=== PATIENT | female | born 1930 | race African-American/Black ===

== ENCOUNTER 2016-08-15 07:30 | Emergency (ER) | payer MEDICARE, OTHER ==
[~2016-08-15] VITALS: Ht 154.9 cm; Wt 87.0 kg
[~2016-08-15 07:30] MED LIST: ALLO300 PO; ASPI-119 PO; CODOIL PO; CORE25TA PO; ECOT81TA2 PO; FERR324T4 PO; FURO20 PO; KCL10C PO; LOSA25TA31 PO; MAGN500T4 PO; MEVA40TA PO; OMEP20CA5 PO; SUPETAB30 PO; VITA-13 PO; VITATAB11 PO
[2016-08-15 07:33] VITALS: BP 211/98; PULSE 89; RESP 15; TEMP 99; O2SAT 97
[2016-08-15 07:54] VITALS: BP 165/92; PULSE 84; RESP 25; O2SAT 95
[2016-08-15] MEDS ORDERED: ATOR20TA15 PO (08:01)
[2016-08-15] MEDS ORDERED: OMEP20CA2 PO (08:01)
[2016-08-15] MEDS ORDERED: VITACAP7 PO (08:01)
[2016-08-15] MEDS ORDERED: ESSE250T PO (08:01)
[2016-08-15] MEDS ORDERED: ALLO100T PO (08:01)
[2016-08-15] MEDS ORDERED: CARV25TA PO (08:01)
[2016-08-15] MEDS ORDERED: ASPI81CH CHEW (08:01)
[2016-08-15] MEDS ORDERED: LOSA50TA PO (08:01)
[2016-08-15] MEDS ORDERED: FERR1TAB58 PO (08:01)
[2016-08-15] MEDS ORDERED: VITA100036 PO (08:01)
--- NOTE | 2016-08-15 08:02 | PD ---
HPI Chief Complaint: Respiratory Symptoms Time Seen by Provider: 07:52 Travel History International Travel<30 days: No Contact w/Intl Traveler<30days: No Traveled to known affect area: No History of Present Illness HPI The patient was seen and examined in the presence of the nurse. This patient complains of cough and wheezing. She woke up at 4 AM with the symptoms. Duration is 4 hours. Severity is mild to moderate. No alleviating factors. She did not have any chest pain or presyncopal symptoms. No documented fever. She has mild chronic edema unchanged from usual PFSH Past Medical History Arthritis: Yes Cancer: No Cardiovascular Problems: Yes High Cholesterol: Yes Endocrine: No Gastrointestinal Disorders: Yes Gout: Yes Genitourinary: No Hypertension: Yes Implanted Vascular Access Dvce: Yes Musculoskeletal: Yes Neurologic: No Psychiatric: No Reproductive: No Respiratory: No Ulcer: Yes ?: Not : 4 Para: 4 Past Surgical History AICD: Yes Appendectomy: Yes Cardiac Surgery: Yes (AICD) Gynecologic Surgery: Yes (hysterectomy) Hysterectomy: Yes Joint Replacement: Yes (RIGHT AND LEFT TOTAL KNEE) Pacemaker: Yes Other Surgery: Yes Social History Alcohol Use: No Tobacco Use: No Substance Use: No Allergies-Medications (Allergen,Severity, Reaction): Coded Allergies: Codeine (Verified Allergy, Severe, 06/10/14) Sulfa (Verified Allergy, Severe, 06/10/14) JOSUÉ Inhibitors (Unverified Allergy, Unknown, 06/10/14) Reported Meds & Prescriptions Reported Meds & Active Scripts Active Reported Iron (Ferrous Sulfate) 50 Mg Tab 50 Mg PO DAILY Aspirin 81 Mg Chew 81 Mg CHEW DAILY Vitamin D3 (Cholecalciferol) 1,000 Unit Cap 1,000 Units PO DAILY B Complex (B-Complex Vitamins) 1 Cap 1 Cap PO DAILY Magnesium 250 Mg Tab 250 Mg PO DAILY Losartan (Losartan Potassium) 50 Mg Tab 50 Mg PO BID Omeprazole 20 Mg Cap 20 Mg PO DAILY Atorvastatin (Atorvastatin Calcium) 20 Mg Tab 20 Mg PO HS Carvedilol 25 Mg Tab 25 Mg PO BID Allopurinol 100 Mg Tab 100 Mg PO DAILY Review of Systems General / Constitutional: No: Fever Eyes: No: Visual changes HENT: Positive: Congestion, No: Headaches Cardiovascular: No: Chest Pain or Discomfort Respiratory: Positive: Cough, Wheezing, No: Shortness of Breath Gastrointestinal: No: Abdominal Pain Genitourinary: No: Dysuria Musculoskeletal: No: Pain Skin: No Rash Neurologic: No: Weakness Psychiatric: No: Depression Endocrine: No: Polydipsia Hematologic/Lymphatic: No: Easy Bruising Physical Exam Narrative GENERAL: Well-nourished, well-developed patient in no apparent distress. SKIN: Focused skin assessment reveals no rash and nodules. Skin is Warm and dry. HEAD: Atraumatic. Normocephalic. EYES: Pupils equal and round. No scleral icterus. No injection or drainage. ENT: No nasal bleeding or discharge. Mucous membranes pink and moist. NECK: Trachea midline. No JVD. CARDIOVASCULAR: Regular rate and rhythm. No murmur appreciated. RESPIRATORY: No accessory muscle use. Clear to auscultation. Breath sounds equal bilaterally. GASTROINTESTINAL: Abdomen soft, non-tender, nondistended. Hepatic and splenic margins not palpable. MUSCULOSKELETAL: No obvious deformities. No clubbing. No cyanosis. Mild symmetric edema in the feet and lower legs NEUROLOGICAL: Awake and alert. No obvious cranial nerve deficits. Motor grossly within normal limits. Normal speech. PSYCHIATRIC: Appropriate mood and affect; insight and judgment normal. Data Data Last Documented VS Vital Signs Date Time Temp Pulse Resp B/P Pulse Ox O2 Delivery O2 Flow Rate FiO2 08/15/16 07:54 84 25 165/92 95 Room Air 08/15/16 07:33 99.0 Orders Chest, Single Ap (08/15/16 ) Electrocardiogram (08/15/16 ) Iv Access Insert/Monitor (08/15/16 08:38) Complete Blood Count With Diff (08/15/16 08:38) Basic Metabolic Panel (Bmp) (08/15/16 08:38) Furosemide Inj (Lasix Inj) (08/15/16 08:45) Labs Laboratory Tests Test 08/15/16 08:48 White Blood Count 5.0 TH/MM3 Red Blood Count 3.58 MIL/MM3 Hemoglobin 11.7 GM/DL Hematocrit 34.0 % Mean Corpuscular Volume 95.0 FL Mean Corpuscular Hemoglobin 32.7 PG Mean Corpuscular Hemoglobin 34.4 % Concent Red Cell Distribution Width 13.6 % Platelet Count 174 TH/MM3 Mean Platelet Volume 9.2 FL Neutrophils (%) (Auto) 66.4 % Lymphocytes (%) (Auto) 22.2 % Monocytes (%) (Auto) 6.4 % Eosinophils (%) (Auto) 4.2 % Basophils (%) (Auto) 0.8 % Neutrophils # (Auto) 3.3 TH/MM3 Lymphocytes # (Auto) 1.1 TH/MM3 Monocytes # (Auto) 0.3 TH/MM3 Eosinophils # (Auto) 0.2 TH/MM3 Basophils # (Auto) 0.0 TH/MM3 CBC Comment DIFF FINAL Differential Comment Sodium Level 143 MEQ/L Potassium Level 4.1 MEQ/L Chloride Level 109 MEQ/L Carbon Dioxide Level 28.1 MEQ/L Anion Gap 6 MEQ/L Blood Urea Nitrogen 21 MG/DL Creatinine 1.17 MG/DL Estimat Glomerular Filtration 53 ML/MIN Rate Random Glucose 106 MG/DL Calcium Level 8.4 MG/DL [facility] Medical Decision Making Medical Screen Exam Complete: Yes Emergency Medical Condition: Yes Medical Record Reviewed: Yes Differential Diagnosis Bronchitis, pneumonia, CHF Narrative Course I have reviewed the patient's electronic medical record. Reviewed her admission history and physical from 2014. History includes dilated cardiomyopathy I reviewed her chest x-ray which shows cardiomegaly and pulmonary edema I reviewed her EKG which shows a sinus rhythm without acute ST elevation Extended cardiac monitoring reveals sinus rhythm without ectopy Initially her blood pressure was significantly elevated but 160 systolic. No tachycardia IV placed CBC is normal Metabolic profile reasonably normal I gave her 60 mg IV Lasix She is diuresing a lot. Saturations are 98% on room air I believe she has a mild exacerbation of chronic CHF She is not on diuretics according to her but her daughter works for her grain elevator agent's office and will look into whether she is supposed to be on 1. We discussed fluid restriction and low sodium diet She is not require acute hospitalization Diagnosis Primary Impression: Congestive heart failure with cardiomyopathy Additional Impressions: Dilated cardiomyopathy Cough Additional Instructions: The patient was advised to follow up with their primary physician and return if they worsen. Follow-up with grain elevator agent Inquire as to whether they should be on diuretics Have low sodium diet and 1200 cc per 24-hour fluid restriction Med/Other Pt SpecificInfo: Other Disposition: DISCHARGE HOME Condition: Stable Dominic Levine MD Aug 15, 2016 08:01
--- NOTE | 2016-08-15 08:34 | RADRPT ---
EXAM DATE/TIME: 08/15/2016 08:04 [place] COMPARISON: CHEST SINGLE AP, June 10, 2014, 20:28. INDICATIONS : Shortness of breath, cough, wheezing. MEDICAL HISTORY : Hypertension. Arthritis. SURGICAL HISTORY : Pacemaker. ENCOUNTER: Initial ACUITY: 1 day PAIN SCORE: 0/10 LOCATION: Bilateral chest FINDINGS: Single AP view of the chest. AICD in place. Moderate cardiac silhouette enlargement unchanged. Bilate ral lower lung zone predominant hazy pulmonary opacity and pulmonary vasculature indistinctness sugge sting pulmonary edema. No evidence of pleural effusion or pneumothorax. CONCLUSION: Bilateral pulmonary parenchymal opacity with lower lung zone predominance and pulmonary vasculature i ndistinctness suggesting pulmonary edema. Chronic cardiac silhouette enlargement. Ryan Swanson MD on August 15, 2016 at 8:31 Board Certified Radiologist. This report was verified electronically.
[2016-08-15] MEDS ORDERED: FUROSEMIDE 100 MG/10 ML VIAL IV PUSH ONE (08:45)
[2016-08-15 09:07] LABS: AUTOMATED NEUTROPHIL # 3.3 TH/MM3 (1.8-7.7); BASOPHIL % 0.8 % (0.0-2.0); EOSINOPHIL # 0.2 TH/MM3 (0-0.4); EOSINOPHIL % 4.2 % (0.0-4.0); HEMO FLAGS DIFF FINAL; LYMPH % 22.2 % (9.0-44.0); LYMPHOCYTE # 1.1 TH/MM3 (1.0-4.8); MEAN CORPUSCULAR HEMOGLOBIN 32.7 PG (27.0-34.0); MEAN CORPUSCULAR HGB CONC 34.4 % (32.0-36.0); MONO % 6.4 % (0.0-8.0); NEUT % 66.4 % (16.0-70.0); PLATELET COUNT 174 TH/MM3 (150-450); RED BLOOD COUNT 3.58 MIL/MM3 (4.00-5.30); RED CELL DISTRIBUTION WIDTH 13.6 % (11.6-17.2)
[2016-08-15 09:23] LABS: BICARBONATE 28.1 MEQ/L (21.0-32.0); POTASSIUM 4.1 MEQ/L (3.5-5.1)
[2016-08-15 10:43] VITALS: BP 165/77; PULSE 85; RESP 25; O2SAT 95
--- NOTE | 2016-08-15 12:48 | EKG ---
Date Performed: 08/15/2016 Time Performed: 08:08:24 PTAGE: 86 years EKG: Sinus rhythm MARKED LEFT AXIS DEVIATION LEFT BUNDLE BRANCH BLOCK ABNORMAL ECG PREVIOUS TRACING : 06/11/2014 08.09 Compared to prior tracing no significant change DOCTOR: Kun Sheridan Interpretating Date/Time 08/15/2016 12:46:44
== END 2016-08-15 11:05 | disposition home or self-care (01) ==
LOC: NEPE 07:30
DX: I50.9 Heart failure, unspecified (principal); I42.0 Dilated cardiomyopathy
CPT/HCPCS: 71010; 80048; 85025; 93005; 96374; 99284; J1940